=== PATIENT | female | born 1965 | race Caucasian/White ===

== ENCOUNTER 2017-03-21 14:57 | Emergency (ER) | payer OTHER ==
[2017-03-21 21:44] LABS: ADD MAN DIFF? NO
[2017-03-21 21:45] LABS: BASOPHILS % 0.4 % (0.0-2.0); EOSINOPHILS # 0.1 10^3/ul (0.0-0.5); EOSINOPHILS % 1.3 % (0.0-7.0); HEMATOCRIT 38.7 % (37.0-47.0); HEMOGLOBIN 13.4 g/dl (12.0-16.0); LYMPHOCYTES # 2.1 10^3/ul (0.8-2.9); LYMPHOCYTES % 31.4 % (15.0-51.0); MEAN CORPUSCULAR HEMOGLOBIN 31.4 pg (29.0-33.0); MEAN CORPUSCULAR HGB CONC 34.6 g/dl (32.0-37.0); MEAN CORPUSCULAR VOLUME 90.6 fl (82.0-101.0); MEAN PLATELET VOLUME 10.4 fl (7.4-10.4); MONOCYTE # 0.7 10^3/ul (0.3-0.9); MONOCYTES % 9.5 % (0.0-11.0); NEUTROPHIL # 3.9 10^3/ul (1.6-7.5); NEUTROPHILS % 57.3 % (39.0-77.0); PLATELET COUNT 263 10^3/UL (140-415); RED BLOOD COUNT 4.27 10^6/ul (4.20-5.40); RED CELL DISTRIBUTION WIDTH 12.9 % (11.5-14.5)
[2017-03-21 21:45] LABS: WHITE BLOOD COUNT 6.8 10^3/ul (4.8-10.8)
[2017-03-21 22:01] LABS: ANION GAP 13 (8-16); BLOOD UREA NITROGEN 23 mg/dl (7-20); CALCIUM 8.8 mg/dl (8.4-10.2); CARBON DIOXIDE 24 mmol/L (21-31); CHLORIDE 103 mmol/L (97-110); CREATININE 0.63 mg/dl (0.44-1.00); GLUCOSE 94 mg/dl (70-220); POTASSIUM 4.2 mmol/L (3.5-5.1); SODIUM 136 mmol/L (135-144)
[2017-03-21 22:13] LABS: TROPONIN-I < 0.012 ng/ml (0.00-0.12)
[2017-03-21] MEDS: KETOROLAC 30 MG INJ IV (23:38)
== END 2017-03-21 23:45 | disposition home or self-care (01) ==
LOC: E/R 14:57
DX: R07.9 Chest pain, unspecified (principal); M62.830 Muscle spasm of back; Z87.891 Personal history of nicotine dependence
CPT/HCPCS: 36415; 71045; 80048; 84484; 85025; 93005; 96374; 99285-25

== ENCOUNTER 2017-04-23 07:49 | Day surgery (SDC) | payer OTHER ==
[~2017-04-23 07:49] MED LIST: SUCCINYLCHOLINE CHLORIDE 100 MG/5 ML SYG IV
[2017-04-23 09:17] LABS: ADD MAN DIFF? NO
[2017-04-23 09:20] LABS: BASOPHILS % 0.4 % (0.0-2.0); EOSINOPHILS # 0.1 10^3/ul (0.0-0.5); EOSINOPHILS % 1.2 % (0.0-7.0); HEMATOCRIT 41.4 % (37.0-47.0); HEMOGLOBIN 14.7 g/dl (12.0-16.0); LYMPHOCYTES # 1.6 10^3/ul (0.8-2.9); LYMPHOCYTES % 32.5 % (15.0-51.0); MEAN CORPUSCULAR HEMOGLOBIN 31.8 pg (29.0-33.0); MEAN CORPUSCULAR HGB CONC 35.5 g/dl (32.0-37.0); MEAN CORPUSCULAR VOLUME 89.6 fl (82.0-101.0); MEAN PLATELET VOLUME 10.1 fl (7.4-10.4); MONOCYTE # 0.4 10^3/ul (0.3-0.9); MONOCYTES % 7.8 % (0.0-11.0); NEUTROPHIL # 2.9 10^3/ul (1.6-7.5); NEUTROPHILS % 58.1 % (39.0-77.0); PLATELET COUNT 263 10^3/UL (140-415); RED BLOOD COUNT 4.62 10^6/ul (4.20-5.40); RED CELL DISTRIBUTION WIDTH 12.2 % (11.5-14.5)
[2017-04-23 09:23] LABS: INR 0.93; PROTIME 12.5 Sec (11.9-14.9)
[2017-04-23 09:25] LABS: ALANINE AMINOTRANSFERASE 36 IU/L (13-69); ALBUMIN 4.7 g/dl (3.3-4.9); ALBUMIN/GLOBULIN RATIO 1.51; ALKALINE PHOSPHATASE 79 IU/L (42-121); ANION GAP 17 (8-16); ASPARTATE AMINO TRANSFERASE 26 IU/L (15-46); BILIRUBIN,INDIRECT 0.3 mg/dl (0-1.1); BILIRUBIN,TOTAL 0.3 mg/dl (0.2-1.3); CARBON DIOXIDE 24 mmol/L (21-31); CHLORIDE 106 mmol/L (97-110); GLUCOSE 98 mg/dl (70-220); TOTAL PROTEIN 7.8 g/dl (6.1-8.1)
[2017-04-23 09:31] LABS: BLOOD UREA NITROGEN 16 mg/dl (7-20); CALCIUM 9.3 mg/dl (8.4-10.2); CREATININE 0.67 mg/dl (0.44-1.00); POTASSIUM 4.1 mmol/L (3.5-5.1); SODIUM 143 mmol/L (135-144)
[2017-04-23 09:49] LABS: PARTIAL THROMBOPLASTIN TIME 36.2 Sec (25.0-35.0)
[2017-04-23] MEDS ORDERED: MIDAZOLAM 1 MG/ML 2 ML INJ (10:23)
[2017-04-23] MEDS ORDERED: NEOSTIGMINE 3 MG/3 ML SYRINGE (10:23)
[2017-04-23] MEDS ORDERED: GLYCOPYRROLATE 0.4 MG INJ (10:23)
[2017-04-23] MEDS ORDERED: PROPOFOL 20 ML (10:23)
[2017-04-23] MEDS ORDERED: ROCURONIUM 50 MG INJ (10:23)
[2017-04-23] MEDS ORDERED: CEFAZOLIN 1 GM INJ (10:23)
[2017-04-23] MEDS ORDERED: ONDANSETRON 4 MG INJ (10:24)
[2017-04-23] MEDS ORDERED: FENTAnyl 50 MCG/ML VIAL (10:24)
[2017-04-23] MEDS ORDERED: DEXAMETHASONE 4 MG/ML 1 ML INJ (10:24)
[2017-04-23] MEDS ORDERED: KETOROLAC 30 MG INJ (10:35)
[2017-04-23] MEDS: STERILE WATER 1L IRRIG BTL IRR (10:44)
[2017-04-23] MEDS ORDERED: SUGAMMADEX SODIUM 200 MG/2 ML VIAL IV (10:55)
[2017-04-23] MEDS ORDERED: EPHEDrine SULFATE 50 MG/5 ML SYG IV (11:00)
[2017-04-23] MEDS ORDERED: FENTAnyl 50 MCG/ML VIAL IV ×3 (11:00)
[2017-04-23] MEDS ORDERED: LABETALOL HCL 20MG INJ IV (11:00)
[2017-04-23] MEDS ORDERED: TRIMETHOBENZAMIDE 100 MG/ML VIAL IM (11:00)
[2017-04-23] MEDS ORDERED: hydrALAzine 20 MG INJ IV (11:00)
[2017-04-23] MEDS ORDERED: HYDROmorphONE (0.2 MG/ML) 10ML SYG IV ×3 (11:00)
[2017-04-23] MEDS ORDERED: IPRATROPIUM (NEB) 0.5 MG/2.5 ML AMP HHN (11:00)
[2017-04-23] MEDS: ONDANSETRON 4 MG INJ IV ×2 (11:13→12:00)
[2017-04-23] MEDS: ALBUTEROL 0.083% (NEB) 2.5 MG/3 ML AMP HHN (11:13)
[2017-04-23] MEDS: DIPHENHYDRAMINE 50 MG INJ IV (11:29)
[2017-04-23] MEDS: MIDAZOLAM 1 MG/ML 2 ML INJ IV (11:35)
== END 2017-04-23 12:32 | disposition home or self-care (01) ==
LOC: SDS 07:49
DX: N93.9 Abnormal uterine and vaginal bleeding, unspecified (principal); Z88.6 Allergy status to analgesic agent; Z88.5 Allergy status to narcotic agent; Z88.0 Allergy status to penicillin; Z88.2 Allergy status to sulfonamides; Z88.8 Allergy status to other drugs, medicaments and biological substances; Z83.3 Family history of diabetes mellitus; Z82.49 Family history of ischemic heart disease and other diseases of the circulatory system
CPT/HCPCS: 58120; 80053; 85025; 85610; 85730; 88305; 93005

== ENCOUNTER 2017-04-24 16:41 | Emergency (ER) | payer OTHER ==
[2017-04-24 17:56] LABS: ADD UMIC YES; UR ASCORBIC ACID NEGATIVE (NEGATIVE); UR BILIRUBIN (Dip) NEGATIVE (NEGATIVE); UR BLOOD (Dip) 3+ mg/dL (NEGATIVE); UR CLARITY SLIGHTLY CLOUDY (CLEAR); UR COLOR YELLOW (YELLOW); UR GLUCOSE (Dip) NEGATIVE (NEGATIVE); UR KETONES (Dip) NEGATIVE (NEGATIVE); UR LEUKOCYTE ESTERASE (Dip) 3+ Leu/ul (NEGATIVE); UR MUCUS FEW /HPF (NONE SEEN); UR NITRITE (Dip) NEGATIVE (NEGATIVE); UR RBC 32 /HPF (0-5); UR SPECIFIC GRAVITY (Dip) 1.016 (1.003-1.030); UR SQUAMOUS EPITHELIAL CELL FEW /HPF (FEW); UR TOTAL PROTEIN (Dip) NEGATIVE (NEGATIVE); UR UROBILINOGEN (Dip) NEGATIVE (NEGATIVE); UR WBC 5 /HPF (0-5)
[2017-04-24 18:28] LABS: ADD MAN DIFF? NO
[2017-04-24 18:31] LABS: WHITE BLOOD COUNT 7.8 10^3/ul (4.8-10.8)
[2017-04-24 18:31] LABS: BASOPHILS % 0.5 % (0.0-2.0); EOSINOPHILS # 0.1 10^3/ul (0.0-0.5); EOSINOPHILS % 0.6 % (0.0-7.0); HEMATOCRIT 38.7 % (37.0-47.0); HEMOGLOBIN 13.7 g/dl (12.0-16.0); LYMPHOCYTES # 3.4 10^3/ul (0.8-2.9); LYMPHOCYTES % 43.3 % (15.0-51.0); MEAN CORPUSCULAR HEMOGLOBIN 31.8 pg (29.0-33.0); MEAN CORPUSCULAR HGB CONC 35.4 g/dl (32.0-37.0); MEAN CORPUSCULAR VOLUME 89.8 fl (82.0-101.0); MEAN PLATELET VOLUME 9.8 fl (7.4-10.4); MONOCYTE # 0.5 10^3/ul (0.3-0.9); MONOCYTES % 6.6 % (0.0-11.0); NEUTROPHIL # 3.8 10^3/ul (1.6-7.5); NEUTROPHILS % 48.9 % (39.0-77.0); PLATELET COUNT 253 10^3/UL (140-415); RED BLOOD COUNT 4.31 10^6/ul (4.20-5.40); RED CELL DISTRIBUTION WIDTH 12.6 % (11.5-14.5)
[2017-04-24 18:53] LABS: ANION GAP 14 (8-16); BLOOD UREA NITROGEN 18 mg/dl (7-20); CALCIUM 9.5 mg/dl (8.4-10.2); CARBON DIOXIDE 26 mmol/L (21-31); CHLORIDE 107 mmol/L (97-110); CREATININE 0.84 mg/dl (0.44-1.00); GLUCOSE 94 mg/dl (70-220); POTASSIUM 4.1 mmol/L (3.5-5.1); SODIUM 143 mmol/L (135-144)
[2017-04-24] MEDS: ALBUTEROL 0.083% (NEB) 2.5 MG/3 ML AMP HHN (19:36)
[2017-04-24] MEDS: IPRATROPIUM (NEB) 0.5 MG/2.5 ML AMP HHN (19:36)
== END 2017-04-24 20:10 | disposition home or self-care (01) ==
LOC: FTE 16:41
DX: R05 Cough (principal); R10.9 Unspecified abdominal pain; Z87.59 Personal history of other complications of pregnancy, childbirth and the puerperium
CPT/HCPCS: 36415; 71046; 76830; 76856; 80048; 81001; 85025; 94664; 99285-25

== ENCOUNTER 2017-05-03 05:07 | Emergency (ER) | payer OTHER ==
[2017-05-03] MEDS ORDERED: morphine 2 MG INJ (08:06)
[2017-05-03] MEDS: LIDOCAINE/MYLANTA 40 ML BTL PO (09:00)
[2017-05-03] MEDS: PANTOPRAZOLE 40 MG INJ IV (09:00)
[2017-05-03 09:10] LABS: ADD MAN DIFF? NO
[2017-05-03 09:15] LABS: BASOPHILS % 0.5 % (0.0-2.0); EOSINOPHILS # 0.1 10^3/ul (0.0-0.5); EOSINOPHILS % 0.9 % (0.0-7.0); HEMATOCRIT 38.9 % (37.0-47.0); LYMPHOCYTES # 1.6 10^3/ul (0.8-2.9); LYMPHOCYTES % 27.1 % (15.0-51.0); MEAN CORPUSCULAR HEMOGLOBIN 32.2 pg (29.0-33.0); MEAN CORPUSCULAR VOLUME 89.4 fl (82.0-101.0); MEAN PLATELET VOLUME 10.1 fl (7.4-10.4); MONOCYTE # 0.4 10^3/ul (0.3-0.9); MONOCYTES % 6.4 % (0.0-11.0); NEUTROPHIL # 3.7 10^3/ul (1.6-7.5); NEUTROPHILS % 64.9 % (39.0-77.0); PLATELET COUNT 229 10^3/UL (140-415); RED BLOOD COUNT 4.35 10^6/ul (4.20-5.40); RED CELL DISTRIBUTION WIDTH 12.4 % (11.5-14.5)
[2017-05-03 09:15] LABS: WHITE BLOOD COUNT 5.8 10^3/ul (4.8-10.8)
[2017-05-03 09:26] LABS: ADD UMIC NO; UR ASCORBIC ACID 40 mg/dL (NEGATIVE); UR BACTERIA FEW /HPF (NONE SEEN); UR BILIRUBIN (Dip) NEGATIVE (NEGATIVE); UR BLOOD (Dip) NEGATIVE (NEGATIVE); UR CLARITY SLIGHTLY CLOUDY (CLEAR); UR COLOR YELLOW (YELLOW); UR GLUCOSE (Dip) NEGATIVE (NEGATIVE); UR KETONES (Dip) 1+ mg/dL (NEGATIVE); UR LEUKOCYTE ESTERASE (Dip) NEGATIVE Leu/ul (NEGATIVE); UR MUCUS MODERATE /HPF (NONE SEEN); UR NITRITE (Dip) NEGATIVE (NEGATIVE); UR RBC 2 /HPF (0-5); UR SPECIFIC GRAVITY (Dip) 1.016 (1.003-1.030); UR SQUAMOUS EPITHELIAL CELL FEW /HPF (FEW); UR TOTAL PROTEIN (Dip) NEGATIVE (NEGATIVE); UR UROBILINOGEN (Dip) NEGATIVE (NEGATIVE); UR WBC 0 /HPF (0-5)
[2017-05-03 09:34] LABS: ALANINE AMINOTRANSFERASE 37 IU/L (13-69); ALBUMIN 4.4 g/dl (3.3-4.9); ALBUMIN/GLOBULIN RATIO 1.46; ALKALINE PHOSPHATASE 65 IU/L (42-121); ANION GAP 16 (8-16); ASPARTATE AMINO TRANSFERASE 24 IU/L (15-46); BILIRUBIN,INDIRECT 0.3 mg/dl (0-1.1); BILIRUBIN,TOTAL 0.3 mg/dl (0.2-1.3); BLOOD UREA NITROGEN 14 mg/dl (7-20); CALCIUM 9.3 mg/dl (8.4-10.2); CARBON DIOXIDE 23 mmol/L (21-31); CHLORIDE 107 mmol/L (97-110); CREATININE 0.62 mg/dl (0.44-1.00); GLUCOSE 97 mg/dl (70-220); LIPASE 108 U/L (23-300); POTASSIUM 4.2 mmol/L (3.5-5.1); SODIUM 142 mmol/L (135-144); TOTAL PROTEIN 7.4 g/dl (6.1-8.1)
[2017-05-03 09:47] LABS: TROPONIN-I < 0.012 ng/ml (0.00-0.12)
[2017-05-03] MEDS: ONDANSETRON 4 MG INJ IV (10:07)
[2017-05-03] MEDS: SOD CHLORIDE 0.9% 1,000 ML IV (10:07)
== END 2017-05-03 13:22 | disposition home or self-care (01) ==
LOC: E/R 05:07
DX: K80.70 Calculus of gallbladder and bile duct without cholecystitis without obstruction (principal); K21.9 Gastro-esophageal reflux disease without esophagitis
CPT/HCPCS: 36415; 71045; 76705; 80053; 81001; 81003; 83690; 84484; 85025; 87086; 93005; 96374; 96375; 99285-25

== ENCOUNTER 2017-06-16 02:56 | Emergency (ER) | payer OTHER | END 2017-06-16 04:25 | disposition home or self-care (01) | LOC: FTE 02:56 | DX: J32.9 Chronic sinusitis, unspecified (principal) | CPT/HCPCS: 99283; Z7502 ==

== ENCOUNTER 2017-06-21 20:23 | Emergency (ER) | payer SELFPAY, OTHER | END 2017-06-21 21:21 | disposition left against medical advice (07) | LOC: E/R 20:23 | DX: Z53.21 Procedure and treatment not carried out due to patient leaving prior to being seen by health care provider (principal) | CPT/HCPCS: 93005 ==

== ENCOUNTER 2017-07-08 22:07 | Emergency (ER) | payer OTHER ==
[2017-07-08 23:36] LABS: ADD MAN DIFF? NO
[2017-07-08 23:39] LABS: WHITE BLOOD COUNT 7.4 10^3/ul (4.8-10.8)
[2017-07-08 23:39] LABS: BASOPHILS % 0.5 % (0.0-2.0); EOSINOPHILS # 0.2 10^3/ul (0.0-0.5); EOSINOPHILS % 2.9 % (0.0-7.0); HEMATOCRIT 37.9 % (37.0-47.0); HEMOGLOBIN 13.3 g/dl (12.0-16.0); LYMPHOCYTES # 2.1 10^3/ul (0.8-2.9); LYMPHOCYTES % 28.4 % (15.0-51.0); MEAN CORPUSCULAR HEMOGLOBIN 32.4 pg (29.0-33.0); MEAN CORPUSCULAR HGB CONC 35.1 g/dl (32.0-37.0); MEAN CORPUSCULAR VOLUME 92.2 fl (82.0-101.0); MEAN PLATELET VOLUME 9.7 fl (7.4-10.4); MONOCYTE # 0.6 10^3/ul (0.3-0.9); MONOCYTES % 7.5 % (0.0-11.0); NEUTROPHIL # 4.5 10^3/ul (1.6-7.5); NEUTROPHILS % 60.6 % (39.0-77.0); PLATELET COUNT 251 10^3/UL (140-415); RED BLOOD COUNT 4.11 10^6/ul (4.20-5.40); RED CELL DISTRIBUTION WIDTH 12.4 % (11.5-14.5)
[2017-07-08] MEDS: ASPIRIN 325 MG TAB PO (23:47)
[2017-07-08] MEDS: LIDOCAINE/MYLANTA 40 ML BTL PO (23:47)
[2017-07-09 00:02] LABS: ANION GAP 13 (8-16); BLOOD UREA NITROGEN 14 mg/dl (7-20); CALCIUM 9.2 mg/dl (8.4-10.2); CARBON DIOXIDE 24 mmol/L (21-31); CHLORIDE 108 mmol/L (97-110); CREATININE 0.63 mg/dl (0.44-1.00); GLUCOSE 110 mg/dl (70-220); POTASSIUM 3.9 mmol/L (3.5-5.1); SODIUM 141 mmol/L (135-144)
[2017-07-09 00:13] LABS: B-TYPE NATRIURETIC PEPTIDE 18 PG/ML (0-125)
[2017-07-09 00:15] LABS: TROPONIN-I < 0.012 ng/ml (0.00-0.12)
[2017-07-09] MEDS ORDERED: FAMOTIDINE 20 MG TAB PO (00:30)
[2017-07-09] MEDS: FAMOTIDINE 20 MG INJ IV (00:51)
[2017-07-09] MEDS: KETOROLAC 30 MG INJ IV (00:51)
== END 2017-07-09 03:46 | disposition home or self-care (01) ==
LOC: E/R 07-09 03:46
DX: K80.20 Calculus of gallbladder without cholecystitis without obstruction (principal); M54.9 Dorsalgia, unspecified; G89.18 Other acute postprocedural pain; Z79.82 Long term (current) use of aspirin; Z85.41 Personal history of malignant neoplasm of cervix uteri; Z87.891 Personal history of nicotine dependence
CPT/HCPCS: 36415; 71045; 74176; 80048; 83880; 84484; 85025; 93005; 96374; 96375; 99285-25

== ENCOUNTER 2017-08-09 05:08 | Emergency (ER) | payer OTHER ==
[2017-08-09 06:07] LABS: ADD MAN DIFF? NO
[2017-08-09 06:09] LABS: WHITE BLOOD COUNT 4.3 10^3/ul (4.8-10.8)
[2017-08-09 06:09] LABS: BASOPHILS % 0.9 % (0.0-2.0); EOSINOPHILS # 0.2 10^3/ul (0.0-0.5); HEMATOCRIT 36.8 % (37.0-47.0); LYMPHOCYTES # 1.7 10^3/ul (0.8-2.9); LYMPHOCYTES % 38.9 % (15.0-51.0); MEAN CORPUSCULAR HEMOGLOBIN 32.2 pg (29.0-33.0); MEAN CORPUSCULAR HGB CONC 35.3 g/dl (32.0-37.0); MEAN CORPUSCULAR VOLUME 91.1 fl (82.0-101.0); MEAN PLATELET VOLUME 9.9 fl (7.4-10.4); MONOCYTE # 0.4 10^3/ul (0.3-0.9); MONOCYTES % 8.6 % (0.0-11.0); NEUTROPHILS % 47.4 % (39.0-77.0); PLATELET COUNT 227 10^3/UL (140-415); RED BLOOD COUNT 4.04 10^6/ul (4.20-5.40); RED CELL DISTRIBUTION WIDTH 12.2 % (11.5-14.5)
[2017-08-09 06:33] LABS: ALANINE AMINOTRANSFERASE 27 IU/L (13-69); ALBUMIN 3.9 g/dl (3.3-4.9); ALBUMIN/GLOBULIN RATIO 1.25; ALKALINE PHOSPHATASE 88 IU/L (42-121); ANION GAP 11 (8-16); ASPARTATE AMINO TRANSFERASE 18 IU/L (15-46); BILIRUBIN,INDIRECT 0.4 mg/dl (0-1.1); BILIRUBIN,TOTAL 0.4 mg/dl (0.2-1.3); BLOOD UREA NITROGEN 13 mg/dl (7-20); CALCIUM 9.3 mg/dl (8.4-10.2); CARBON DIOXIDE 29 mmol/L (21-31); CHLORIDE 109 mmol/L (97-110); CREATININE 0.65 mg/dl (0.44-1.00); GLUCOSE 94 mg/dl (70-220); LIPASE 78 U/L (23-300); SODIUM 145 mmol/L (135-144)
[2017-08-09 08:14] LABS: URINE BLOOD (Dip) POC Negative (NEGATIVE); URINE GLUCOSE (Dip) POC Negative (NEGATIVE); URINE KETONES (Dip) POC Negative (NEGATIVE); URINE LEUKOCYTE EST (Dip) POC 1+ (NEGATIVE); URINE NITRITE (Dip) POC Negative (NEGATIVE); URINE TOTAL PROTEIN POC Negative (NEGATIVE)
[2017-08-09 08:14] LABS: URINE PH (Dip) POC 6.5 (5.0-8.5)
== END 2017-08-09 08:23 | disposition home or self-care (01) ==
LOC: E/R 05:08
DX: K80.50 Calculus of bile duct without cholangitis or cholecystitis without obstruction (principal); Z87.891 Personal history of nicotine dependence
CPT/HCPCS: 36415; 76705; 80053; 81003; 83690; 85025; 99284-25

== ENCOUNTER 2017-08-26 06:46 | Day surgery (SDC) | payer OTHER ==
[2017-08-26] MEDS ORDERED: CLINDAMYCIN 900 MG/50 ML D5W IVPB IVPB (07:00)
[2017-08-26] MEDS ORDERED: CLINDAMYCIN 600 MG/D5W (PMX) 50 ML IVPB (09:00)
[2017-08-26] MEDS ORDERED: SOD CHLORIDE 0.9% 1,000 ML IV (09:00)
[2017-08-26] MEDS ORDERED: ROCURONIUM 50 MG INJ (11:05)
[2017-08-26] MEDS ORDERED: ONDANSETRON 4 MG INJ (11:05)
[2017-08-26] MEDS ORDERED: MIDAZOLAM 1 MG/ML 2 ML INJ (11:05)
[2017-08-26] MEDS ORDERED: CEFAZOLIN 1 GM INJ (11:05)
[2017-08-26] MEDS ORDERED: DEXAMETHASONE 4 MG/ML 1 ML INJ (11:05)
[2017-08-26] MEDS ORDERED: FENTAnyl 50 MCG/ML VIAL ×2 (11:05→12:43)
[2017-08-26] MEDS ORDERED: PROPOFOL 20 ML (11:05)
[2017-08-26] MEDS ORDERED: NEOSTIGMINE 3 MG/3 ML SYRINGE (11:05)
[2017-08-26] MEDS ORDERED: GLYCOPYRROLATE 0.4 MG INJ (11:05)
[2017-08-26] MEDS ORDERED: ROPIVACAINE 0.2% 20 ML VIAL (11:11)
[2017-08-26] MEDS ORDERED: KETOROLAC 30 MG INJ (11:16)
[2017-08-26] MEDS ORDERED: SUGAMMADEX SODIUM 200 MG/2 ML VIAL IV ×2 (11:17→12:35)
[2017-08-26] MEDS ORDERED: BUPIVACAINE 0.25% (MPF) 30 ML INJ (11:29)
[2017-08-26] MEDS ORDERED: TRIMETHOBENZAMIDE 100 MG/ML VIAL IM (12:30)
[2017-08-26] MEDS ORDERED: DIPHENHYDRAMINE 50 MG INJ IV (12:30)
[2017-08-26] MEDS ORDERED: EPHEDrine SULFATE 50 MG/5 ML SYG IV (12:30)
[2017-08-26] MEDS ORDERED: FENTAnyl 50 MCG/ML VIAL IV ×2 (12:30)
[2017-08-26] MEDS ORDERED: MIDAZOLAM 1 MG/ML 2 ML INJ IV (12:30)
[2017-08-26] MEDS ORDERED: IPRATROPIUM (NEB) 0.5 MG/2.5 ML AMP HHN (12:30)
[2017-08-26] MEDS ORDERED: LABETALOL HCL 20MG INJ IV (12:30)
[2017-08-26] MEDS ORDERED: OXYCODONE/ACETAMINOPHEN (5/325) TAB PO (12:30)
[2017-08-26] MEDS ORDERED: HYDROmorphONE 1 MG/5 ML IV SYRINGE IV (12:30)
[2017-08-26] MEDS ORDERED: ALBUTEROL 0.083% (NEB) 2.5 MG/3 ML AMP HHN (12:30)
[2017-08-26] MEDS ORDERED: hydrALAzine 20 MG INJ IV (12:30)
[2017-08-26] MEDS ORDERED: HYDROCODONE/APAP (5/325) TAB PO (13:00)
[2017-08-26] MEDS: ONDANSETRON 4 MG INJ IV ×2 (13:01→15:26)
[2017-08-26] MEDS: FENTAnyl 50 MCG/ML VIAL IV ×2 (13:01→13:08)
[2017-08-26] MEDS: HYDROmorphONE 1 MG/5 ML IV SYRINGE IV ×4 (13:02→13:27)
== END 2017-08-26 16:35 | disposition home or self-care (01) ==
LOC: SDS 06:46
DX: K81.1 Chronic cholecystitis (principal); E66.9 Obesity, unspecified; Z68.38 Body mass index [BMI] 38.0-38.9, adult
CPT/HCPCS: 47562; 88304

== ENCOUNTER 2017-08-31 11:21 | Emergency (ER) | payer OTHER ==
[2017-08-31] MEDS: CLINDAMYCIN 300 MG INJ IM (12:44)
== END 2017-08-31 13:05 | disposition home or self-care (01) ==
LOC: FTE 11:21
DX: T81.4XXA Infection following a procedure, initial encounter (principal); Y73.3 Surgical instruments, materials and gastroenterology and urology devices (including sutures) associated with adverse incidents; Z87.891 Personal history of nicotine dependence
CPT/HCPCS: 96372; 99284-25

== ENCOUNTER 2017-08-31 22:55 | Emergency (ER) | payer OTHER ==
[2017-08-31] MEDS: LOPERAMIDE 2 MG CAP PO (23:42)
== END 2017-09-01 00:05 | disposition home or self-care (01) ==
LOC: FTE 09-01 00:05
DX: R19.7 Diarrhea, unspecified (principal); K64.4 Residual hemorrhoidal skin tags; Z87.891 Personal history of nicotine dependence
CPT/HCPCS: 99284; Z7502

== ENCOUNTER 2017-09-14 21:49 | Emergency (ER) | payer OTHER ==
[2017-09-14] MEDS: SOD CHLORIDE 0.9% 1,000 ML IV (22:53)
[2017-09-14 22:57] LABS: ADD MAN DIFF? NO
[2017-09-14 22:59] LABS: BASOPHILS % 0.4 % (0.0-2.0); EOSINOPHILS # 0.2 10^3/ul (0.0-0.5); EOSINOPHILS % 2.1 % (0.0-7.0); HEMOGLOBIN 12.1 g/dl (12.0-16.0); LYMPHOCYTES # 1.3 10^3/ul (0.8-2.9); LYMPHOCYTES % 16.7 % (15.0-51.0); MEAN CORPUSCULAR HEMOGLOBIN 31.7 pg (29.0-33.0); MEAN CORPUSCULAR HGB CONC 34.6 g/dl (32.0-37.0); MEAN CORPUSCULAR VOLUME 91.6 fl (82.0-101.0); MEAN PLATELET VOLUME 9.3 fl (7.4-10.4); MONOCYTE # 0.5 10^3/ul (0.3-0.9); MONOCYTES % 6.4 % (0.0-11.0); NEUTROPHIL # 5.9 10^3/ul (1.6-7.5); NEUTROPHILS % 74.2 % (39.0-77.0); PLATELET COUNT 267 10^3/UL (140-415); RED BLOOD COUNT 3.82 10^6/ul (4.20-5.40); RED CELL DISTRIBUTION WIDTH 12.3 % (11.5-14.5)
[2017-09-14 23:19] LABS: ALANINE AMINOTRANSFERASE 30 IU/L (13-69); ALBUMIN/GLOBULIN RATIO 1.37; ALKALINE PHOSPHATASE 70 IU/L (42-121); ANION GAP 14 (8-16); ASPARTATE AMINO TRANSFERASE 20 IU/L (15-46); BILIRUBIN,INDIRECT 0.1 mg/dl (0-1.1); BILIRUBIN,TOTAL 0.1 mg/dl (0.2-1.3); BLOOD UREA NITROGEN 19 mg/dl (7-20); CARBON DIOXIDE 25 mmol/L (21-31); CHLORIDE 107 mmol/L (97-110); CREATININE 0.61 mg/dl (0.44-1.00); GLUCOSE 121 mg/dl (70-220); LIPASE 83 U/L (23-300); POTASSIUM 3.9 mmol/L (3.5-5.1); SODIUM 142 mmol/L (135-144); TOTAL PROTEIN 6.9 g/dl (6.1-8.1)
[2017-09-15 01:56] LABS: URINE BLOOD (Dip) POC Negative (NEGATIVE); URINE GLUCOSE (Dip) POC Negative (NEGATIVE); URINE KETONES (Dip) POC Negative (NEGATIVE); URINE LEUKOCYTE EST (Dip) POC Negative (NEGATIVE); URINE NITRITE (Dip) POC Negative (NEGATIVE); URINE TOTAL PROTEIN POC Negative (NEGATIVE)
== END 2017-09-15 02:26 | disposition home or self-care (01) ==
LOC: E/R 09-15 02:26
DX: R11.2 Nausea with vomiting, unspecified (principal); R19.7 Diarrhea, unspecified; R10.84 Generalized abdominal pain; Z87.891 Personal history of nicotine dependence
CPT/HCPCS: 36415; 74176; 80053; 81003; 83690; 85025; 99285-25

== ENCOUNTER 2017-11-11 13:17 | Emergency (ER) | payer OTHER | END 2017-11-11 15:46 | disposition home or self-care (01) | LOC: FTE 13:17 | DX: S39.92XA Unspecified injury of lower back, initial encounter (principal); W10.9XXA Fall (on) (from) unspecified stairs and steps, initial encounter; Y92.9 Unspecified place or not applicable; Z87.891 Personal history of nicotine dependence | CPT/HCPCS: 72100; 99283-25 ==

== ENCOUNTER 2017-11-13 11:41 | Day surgery (SDC) | payer OTHER ==
[2017-11-13] MEDS ORDERED: LIDOCAINE 2% (SDV) 5 ML INJ (13:50)
[2017-11-13] MEDS ORDERED: PROPOFOL 60 ML (13:50)
== END 2017-11-13 15:24 | disposition home or self-care (01) ==
LOC: GIL 11:41
DX: Z12.11 Encounter for screening for malignant neoplasm of colon (principal); K62.1 Rectal polyp; K64.8 Other hemorrhoids; K29.50 Unspecified chronic gastritis without bleeding
CPT/HCPCS: 43239; 88305; 88312

== ENCOUNTER 2018-02-10 06:00 | Emergency (ER) | payer OTHER ==
[2018-02-10 06:51] LABS: ADD MAN DIFF? NO
[2018-02-10 06:53] LABS: WHITE BLOOD COUNT 5.4 10^3/ul (4.8-10.8)
[2018-02-10 06:53] LABS: BASOPHILS % 0.4 % (0.0-2.0); EOSINOPHILS # 0.1 10^3/ul (0.0-0.5); EOSINOPHILS % 1.9 % (0.0-7.0); HEMATOCRIT 39.2 % (37.0-47.0); HEMOGLOBIN 13.7 g/dl (12.0-16.0); LYMPHOCYTES # 1.6 10^3/ul (0.8-2.9); LYMPHOCYTES % 29.7 % (15.0-51.0); MEAN CORPUSCULAR HEMOGLOBIN 30.8 pg (29.0-33.0); MEAN CORPUSCULAR HGB CONC 34.9 g/dl (32.0-37.0); MEAN CORPUSCULAR VOLUME 88.1 fl (82.0-101.0); MEAN PLATELET VOLUME 9.6 fl (7.4-10.4); MONOCYTE # 0.4 10^3/ul (0.3-0.9); MONOCYTES % 7.1 % (0.0-11.0); NEUTROPHIL # 3.3 10^3/ul (1.6-7.5); NEUTROPHILS % 60.7 % (39.0-77.0); PLATELET COUNT 252 10^3/UL (140-415); RED BLOOD COUNT 4.45 10^6/ul (4.20-5.40); RED CELL DISTRIBUTION WIDTH 12.5 % (11.5-14.5)
[2018-02-10 07:12] LABS: INR 0.98; PROTIME 13.1 Sec (11.9-14.9)
[2018-02-10 07:13] LABS: PARTIAL THROMBOPLASTIN TIME 35.4 Sec (23.0-35.0)
[2018-02-10 07:14] LABS: ALANINE AMINOTRANSFERASE 33 IU/L (13-69); ALBUMIN 4.2 g/dl (3.3-4.9); ALBUMIN/GLOBULIN RATIO 1.31; ALKALINE PHOSPHATASE 94 IU/L (42-121); ANION GAP 11 (5-13); ASPARTATE AMINO TRANSFERASE 31 IU/L (15-46); BILIRUBIN,INDIRECT 0.4 mg/dl (0-1.1); BILIRUBIN,TOTAL 0.4 mg/dl (0.2-1.3); BLOOD UREA NITROGEN 15 mg/dl (7-20); CALCIUM 9.3 mg/dl (8.4-10.2); CARBON DIOXIDE 25 mmol/L (21-31); CHLORIDE 105 mmol/L (97-110); CREATININE 0.58 mg/dl (0.44-1.00); Estimated GFR > 60 mL/min (>60); GLUCOSE 113 mg/dl (70-220); POTASSIUM 4.2 mmol/L (3.5-5.1); SODIUM 141 mmol/L (135-144); TOTAL PROTEIN 7.4 g/dl (6.1-8.1)
[2018-02-10] MEDS: ACETAMINOPHEN 325 MG TAB PO (07:14)
[2018-02-10 07:26] LABS: TROPONIN-I < 0.012 ng/ml (0.000-0.120)
== END 2018-02-10 07:45 | disposition home or self-care (01) ==
LOC: FTE 06:00
DX: M54.9 Dorsalgia, unspecified (principal); R07.9 Chest pain, unspecified; Z85.42 Personal history of malignant neoplasm of other parts of uterus
CPT/HCPCS: 71045; 80053; 84484; 85025; 85610; 85730; 93005; 99285-25